=== PATIENT | male | born 1935 | race Caucasian/White ===

== ENCOUNTER → 2020-07-22 | Outpatient (REF) | payer MEDICARE ==
[2020-07-22 16:21] LABS: HEMATOCRIT 43.4 % (42.0-52.0); HEMOGLOBIN 13.9 g/dl (13.5-17.5); MEAN CORPUSCULAR HEMOGLOBIN 27.4 pg (27.0-33.0); MEAN CORPUSCULAR VOLUME 85.4 fl (80.0-96.0); PLATELET COUNT, AUTOMATED 167 10^3/uL (150-450); RED BLOOD COUNT 5.08 10^6/uL (4.30-6.10); WHITE BLOOD COUNT 6.3 10^3/uL (4.0-10.0)
[2020-07-22 16:31] LABS: ALBUMIN 3.7 GM/DL (3.2-5.2); BILIRUBIN,TOTAL 0.5 MG/DL (0.2-1.0); CALCIUM LEVEL 9.7 MG/DL (8.8-10.2); CHOLESTEROL RISK RATIO 3.243 (<5); CREATININE FOR GFR 1.25 MG/DL (0.70-1.30); GLOMERULAR FILTRATION RATE 58.6 (>35); POTASSIUM SERUM 4.6 MEQ/L (3.5-5.1); TOTAL PROTEIN 7.3 GM/DL (6.4-8.2)
[2020-07-22 16:32] LABS: MALB URINE SIEMENS 53.8 MG/L; MAU/CREAT RATIO 37.8 MCG/MG (0.0-30.0)
[2020-07-22 16:45] LABS: HEMOGLOBIN A1c 6.8 %
== END ==
LOC: M LAB REF 15:41
PROVIDERS: ATTEND Physician Assistant
DX: E11.40 Type 2 diabetes mellitus with diabetic neuropathy, unspecified (principal)

== ENCOUNTER → 2020-12-16 | Outpatient (REF) | payer MEDICARE, MEDICAID ==
[2020-12-16 14:25] LABS: ALBUMIN 3.6 GM/DL (3.2-5.2); ALT/SGPT 20 U/L (12-78); BILIRUBIN,TOTAL 0.4 MG/DL (0.2-1.0); BLOOD UREA NITROGEN 18 MG/DL (7-18); CALCIUM LEVEL 9.9 MG/DL (8.8-10.2); CARBON DIOXIDE LEVEL 27 MEQ/L (21-32); CHLORIDE LEVEL 107 MEQ/L (98-107); CHOLESTEROL LEVEL 95 MG/DL (<200); CHOLESTEROL RISK RATIO 2.638 (<5); CREATININE FOR GFR 1.14 MG/DL (0.70-1.30); GLOMERULAR FILTRATION RATE > 60.0 (>35); GLUCOSE, FASTING 172 MG/DL (70-100); HDL CHOLESTEROL 36 MG/DL (>40); LDL CHOLESTEROL 40 MG/DL (<100); NON-HDL-C 59 MG/DL; POTASSIUM SERUM 4.4 MEQ/L (3.5-5.1); SODIUM LEVEL 140 MEQ/L (136-145); TRIGLYCERIDES LEVEL 93 MG/DL (<150)
[2020-12-16 14:39] LABS: HEMOGLOBIN A1c 7.4 %
== END ==
LOC: M LAB REF 12:42
PROVIDERS: ATTEND Family Medicine Addiction Medicine
DX: E11.69 Type 2 diabetes mellitus with other specified complication (principal)

== ENCOUNTER → 2020-12-22 | Outpatient (CLI) | payer MEDICARE, MEDICAID ==
--- NOTE | 2020-12-23 04:20 | REP ---
INDICATION: CONSTIPATION COMPARISON: None. TECHNIQUE: Supine views of the abdomen and pelvis. FINDINGS: Bowel gas pattern is nonspecific and without obstruction or perforation. No organomegaly. No abnormal calcifications. Skeletal structures demonstrate age-related degenerative changes. IMPRESSION: Nonspecific bowel gas pattern. <Electronically signed by Mio Rainey > 12/23/20 041
== END ==
LOC: M WUC 15:22
PROVIDERS: ATTEND Physician Assistant
DX: K59.00 Constipation, unspecified (principal)

== ENCOUNTER → 2021-08-25 | Outpatient (REF) | payer MEDICARE, MEDICAID | LOC: M LAB REF 17:15 | PROVIDERS: ATTEND Nurse Practitioner Family | DX: L12.0 Bullous pemphigoid (principal) | CPT/HCPCS: 87070; 87077; 87186; 87252; G0463 ==

== ENCOUNTER → 2021-11-01 | Outpatient (REF) | payer MEDICARE, MEDICAID ==
[2021-11-01 17:13] LABS: APPEARANCE, URINE CLEAR (CLEAR); BACTERIA, URINE AUTO NEGATIVE (NEGATIVE); BILIRUBIN, URINE AUTO NEGATIVE (NEGATIVE); BLOOD, URINE BLOOD NEGATIVE (NEGATIVE); COLOR, URINE YELLOW (YELLOW); GLUCOSE, URINE (UA) AUTO NEGATIVE (NEGATIVE); KETONE, URINE AUTO TRACE mg/dL (NEGATIVE); LEUKOCYTE ESTERASE, URINE AUTO NEGATIVE (NEGATIVE); MUCUS, URINE SMALL (NEGATIVE); NITRITE, URINE AUTO NEGATIVE (NEGATIVE); PROTEIN, URINE AUTO NEGATIVE (NEGATIVE); RBC, URINE AUTO 0 /HPF (0-3); SPECIFIC GRAVITY URINE AUTO 1.019 (1.002-1.035); SQUAMOUS EPITHELIAL CELL UR AU 0 /HPF (0-6); UROBILINOGEN, URINE AUTO 0.2 mg/dL (0.0-2.0); WBC, URINE AUTO 2 /HPF (0-3)
== END ==
LOC: M SMT 16:37
PROVIDERS: ATTEND Physician Assistant
DX: N40.1 Benign prostatic hyperplasia with lower urinary tract symptoms (principal)

== ENCOUNTER → 2021-11-04 | Outpatient (CLI) | payer MEDICARE, MEDICAID | LOC: M WHC 12:02 | PROVIDERS: ATTEND Physician Assistant | DX: R59.0 Localized enlarged lymph nodes (principal) ==

== ENCOUNTER → 2021-11-04 | Outpatient (CLI) | payer MEDICARE, MEDICAID | LOC: M WHC 11:52 | PROVIDERS: ATTEND Physician Assistant | DX: N43.40 Spermatocele of epididymis, unspecified (principal) ==

== ENCOUNTER → 2022-01-19 | Outpatient (CLI) | payer MEDICARE, MEDICAID | LOC: M RAD 16:40 | PROVIDERS: ATTEND Physician Assistant | DX: M48.07 Spinal stenosis, lumbosacral region (principal) ==

== ENCOUNTER → 2022-01-22 | Outpatient (CLI) | payer MEDICARE, MEDICAID | LOC: M LABSMTC 11:26 | PROVIDERS: ATTEND Anesthesiology | DX: Z20.828 Contact with and (suspected) exposure to other viral communicable diseases (principal); Z11.59 Encounter for screening for other viral diseases ==

== ENCOUNTER → 2022-02-06 | Outpatient (CLI) | payer MEDICARE, MEDICAID ==
[~2022-02-06] MED LIST: ACET325C5 PO; ALBU8.5H; CARV3.12 PO; ENTR1TAB; FAMO1TAB11; FLUTISP; FURO20TA2; GABA-1171; INSULANT SQ; JANU100T; MELA10CA PO; MELO7.5T35; METF500T13; MONT10TA97; OMEG350C PO; PANT40TA29; SERT150C PO; SIMV20TA22; TAMS1CAP17; TRAZ-252; VITA100093 PO; VITA500C24 PO
== END ==
LOC: M LABSMTC 09:17
PROVIDERS: ATTEND Anesthesiology
DX: Z20.828 Contact with and (suspected) exposure to other viral communicable diseases (principal); Z11.59 Encounter for screening for other viral diseases

== ENCOUNTER 2023-07-24 17:40 | Emergency (ER) | payer MEDICAID, MEDICARE, OTHER ==
[~2023-07-24] VITALS: Ht 160 cm; Wt 83.7 kg
[~2023-07-24 17:40] MED LIST changes: +INSULANT SC; -INSULANT SQ
[2023-07-24 18:04] VITALS: BP 187/92; TEMP 98.5; O2SAT 97
[2023-07-24 18:31] LABS: HEMATOCRIT 44.6 % (42.0-52.0); HEMOGLOBIN 14.5 g/dl (13.5-17.5); MEAN CORPUSCULAR HEMOGLOBIN 27.8 pg (27.0-33.0); MEAN CORPUSCULAR HGB CONC 32.5 g/dl (32.0-36.5); MEAN CORPUSCULAR VOLUME 85.6 fl (80.0-96.0); PLATELET COUNT, AUTOMATED 164 10^3/uL (150-450); RED BLOOD COUNT 5.21 10^6/uL (4.30-6.10); WHITE BLOOD COUNT 6.3 10^3/uL (4.0-10.0)
[2023-07-24 18:52] LABS: ETHYL ALCOHOL (ETHANOL) 0.009 % (0.000-0.010)
[2023-07-24 18:54] LABS: ALBUMIN 3.7 G/DL (3.2-5.2); ALKALINE PHOSPHATASE 80 U/L (46-116); ALT/SGPT 16 U/L (7.0-40); AST/SGOT 14 U/L (<34); BILIRUBIN,DIRECT 0.2 MG/DL (<0.4); BILIRUBIN,TOTAL 0.5 MG/DL (0.3-1.2); BLOOD UREA NITROGEN 16 MG/DL (9-23); CALCIUM LEVEL 10.1 MG/DL (8.3-10.6); CARBON DIOXIDE LEVEL 27 MMOL/L (20-31); CHLORIDE LEVEL 106 MMOL/L (98-107); CREATININE FOR GFR 0.87 MG/DL (0.70-1.30); GLOMERULAR FILTRATION RATE > 60.0 (>35); GLUCOSE, FASTING 154 MG/DL (74-106); POTASSIUM SERUM 4.5 MMOL/L (3.5-5.1); SALICYLATE LEVEL < 3.0 MG/DL (<30); SODIUM LEVEL 140 MMOL/L (136-145); TOTAL PROTEIN 7.4 G/DL (5.7-8.2)
[2023-07-24 19:15] LABS: AMPHETAMINES LEVEL URINE NEGATIVE (NEGATIVE); BARBITURATES URINE NEGATIVE (NEGATIVE); BENZODIAZEPINES URINE NEGATIVE (NEGATIVE); CANNABINOIDS URINE NEGATIVE (NEGATIVE); COCAINE METABOLITE URINE NEGATIVE (NEGATIVE); METHADONE URINE NEGATIVE (NEGATIVE); OPIATES URINE NEGATIVE (NEGATIVE); PHENCYCLIDINE URINE NEGATIVE (NEGATIVE)
[2023-07-24] MEDS ORDERED: CARVedilol 3.125 MG TAB PO ONE (20:35)
[2023-07-24] MEDS ORDERED: ENTRESTO 24-26MG TABLET (SACUBITRIL/VALSARTAN) PO SCH (21:00)
[2023-07-24 21:13] VITALS: BP 188/88
[2023-07-24] MEDS ORDERED: FAMO40TA3 PO (22:34)
[2023-07-24] MEDS ORDERED: TREL1AER INH (22:34)
[2023-07-24] MEDS ORDERED: JANU100T PO (22:34)
[2023-07-24] MEDS ORDERED: FISH10002 PO (22:34)
[2023-07-24] MEDS ORDERED: FLOM0.4C39 PO (22:34)
[2023-07-24] MEDS ORDERED: CETI-24 PO (22:34)
[2023-07-24] MEDS ORDERED: SERT50TA29 PO (22:34)
[2023-07-24] MEDS ORDERED: VITA100065 PO (22:34)
[2023-07-24] MEDS ORDERED: BRIM0.2S13 OD (22:34)
[2023-07-24] MEDS ORDERED: CHEL50TA3 PO (22:34)
[2023-07-24] MEDS ORDERED: SIMV10TA21 PO (22:34)
[2023-07-24] MEDS ORDERED: ENTR1TAB PO (22:34)
[2023-07-24] MEDS ORDERED: XALA0.007 OD (22:34)
[2023-07-24] MEDS ORDERED: VITA500030 PO (22:34)
[2023-07-24] MEDS ORDERED: DICY-61 PO (22:34)
[2023-07-24] MEDS ORDERED: MELA3TAB30 PO (22:34)
[2023-07-24] MEDS ORDERED: LANS30CA93 PO (22:34)
[2023-07-24] MEDS ORDERED: HOME MED LIST COMPLETE! XX SCH (22:35)
[2023-07-25] MEDS ORDERED: QUEtiapine FUMARATE 25 MG TAB PO ONE (00:05)
[2023-07-25] MEDS ORDERED: SERO1TAB3 PO (01:03)
== END 2023-07-25 02:12 | disposition home or self-care (01) ==
LOC: EDBD 17:40 → M ED 17:40 → CANBEDREQ 22:02 → M ED 07-25 02:12
DX: R44.3 Hallucinations, unspecified (principal); I10 Essential (primary) hypertension; J44.9 Chronic obstructive pulmonary disease, unspecified; I50.22 Chronic systolic (congestive) heart failure; E11.9 Type 2 diabetes mellitus without complications; Z79.4 Long term (current) use of insulin; Z79.899 Other long term (current) drug therapy; Z79.818 Long term (current) use of other agents affecting estrogen receptors and estrogen levels

== ENCOUNTER → 2023-09-11 | Outpatient (CLI) | payer OTHER, MEDICAID ==
[~2023-09-11] MED LIST changes: +BRIM0.2S13 OD; +CETI-24 PO; +CHEL50TA3 PO; +DICY-61 PO; +ENTR1TAB PO; +FAMO40TA3 PO; +FISH10002 PO; +FLOM0.4C39 PO; +JANU100T PO; +LANS30CA93 PO; +MELA3TAB30 PO; +SERO1TAB3 PO; +SERT50TA29 PO; +SIMV10TA21 PO; +TREL1AER INH; +VITA100065 PO; +VITA500030 PO; +XALA0.007 OD
[2023-09-11 12:39] LABS: THYROID STIMULATING HORMONE 2.293 uIU/ML (0.55-4.78)
[2023-09-11 12:40] LABS: FOLATE 16.37 NG/ML (>5.4)
== END ==
LOC: M WUC 08:17
PROVIDERS: ATTEND Psychiatry & Neurology Neurology
DX: E03.9 Hypothyroidism, unspecified (principal); E53.8 Deficiency of other specified B group vitamins; R44.1 Visual hallucinations; R41.3 Other amnesia

== ENCOUNTER → 2024-04-01 | Outpatient (REF) | payer OTHER, MEDICAID ==
[2024-04-01 17:02] LABS: ALKALINE PHOSPHATASE 74 U/L (46-116); ALT/SGPT 15 U/L (7.0-40); AST/SGOT 9 U/L (<34); BILIRUBIN,TOTAL 0.3 MG/DL (0.3-1.2); BLOOD UREA NITROGEN 25 MG/DL (9-23); CALCIUM LEVEL 10.4 MG/DL (8.3-10.6); CARBON DIOXIDE LEVEL 32 MMOL/L (20-31); CHLORIDE LEVEL 105 MMOL/L (98-107); CHOLESTEROL LEVEL 115 MG/DL (<200); CHOLESTEROL RISK RATIO 3.01 (<5); CREATININE FOR GFR 1.01 MG/DL (0.70-1.30); GLOMERULAR FILTRATION RATE > 60.0 (>35); GLUCOSE, FASTING 80 MG/DL (74-106); HDL CHOLESTEROL 38.1 MG/DL (>40); HEMATOCRIT 39.5 % (42.0-52.0); HEMOGLOBIN 12.5 g/dl (13.5-17.5); LDL CHOLESTEROL 57.7 MG/DL (<100); MEAN CORPUSCULAR HGB CONC 31.6 g/dl (32.0-36.5); MEAN CORPUSCULAR VOLUME 85.3 fl (80.0-96.0); NON-HDL-C 76.9 MG/DL; PLATELET COUNT, AUTOMATED 251 10^3/uL (150-450); RED BLOOD COUNT 4.63 10^6/uL (4.30-6.10); SODIUM LEVEL 142 MMOL/L (136-145); TOTAL PROTEIN 6.6 G/DL (5.7-8.2); TRIGLYCERIDES LEVEL 96 MG/DL (<150); WHITE BLOOD COUNT 8.5 10^3/uL (4.0-10.0)
[2024-04-01 17:21] LABS: CREATININE, URINE 47.7 MG/DL; MAU/CREAT RATIO 20.9 MCG/MG (0.0-30.0)
== END ==
LOC: M LAB REF 16:14
PROVIDERS: ATTEND Physician Assistant
DX: E11.319 Type 2 diabetes mellitus with unspecified diabetic retinopathy without macular edema (principal); E11.40 Type 2 diabetes mellitus with diabetic neuropathy, unspecified

== ENCOUNTER → 2024-05-28 | Outpatient (CLI) | payer OTHER, MEDICAID | LOC: M RAD 10:02 | PROVIDERS: ATTEND Physician Assistant | DX: R59.0 Localized enlarged lymph nodes (principal) ==